=== PATIENT | female | born 1980 | race American Indian/Alaskan Native ===

== ENCOUNTER 2021-06-18 16:32 | Emergency (ER) | payer OTHER | END 2021-06-18 19:05 | disposition home or self-care (01) | LOC: JD.ED 16:32 | DX: F10.129 Alcohol abuse with intoxication, unspecified (principal); Y90.5 Blood alcohol level of 100-119 mg/100 ml | CPT/HCPCS: 36415; 80307; 99284 ==

== ENCOUNTER 2023-08-19 06:51 | Emergency (ER) | payer SELFPAY ==
[2023-08-19 08:09] LABS: BASOPHILS PERCENT AUTO 0.6 % (0.0-1.0); EOSINOPHILS ABSOLUTE AUTO 0.1 K/mm3 (0.0-0.4); EOSINOPHILS PERCENT AUTO 0.8 % (0.0-6.0); HEMOGLOBIN 8.8 gm/dl (12.0-16.0); IMMATURE GRAN ABSOLUTE AUTO 0.02 K/mm3 (0.00-0.05); IMMATURE GRAN PERCENT AUTO 0.3 % (0.0-0.4); LYMPHOCYTES ABSOLUTE AUTO 3.1 K/mm3 (1.0-4.8); LYMPHOCYTES PERCENT AUTO 48.4 % (24.0-44.0); MEAN CORPUSCULAR HEMOGLOBIN 19.6 pg (28.0-32.0); MEAN CORPUSCULAR HGB CONC 28.4 g/dl (32.0-36.0); MEAN CORPUSCULAR VOLUME 68.9 fl (83.0-99.0); MEAN PLATELET VOLUME 9.5 fl (9.4-12.3); MONOCYTES ABSOLUTE AUTO 0.4 K/mm3 (0.0-0.8); MONOCYTES PERCENT AUTO 6.1 % (0.0-8.0); NEUTROPHILS ABSOLUTE AUTO 2.8 K/mm3 (1.8-7.7); NEUTROPHILS PERCENT AUTO 43.8 % (41.0-71.0); PLATELET COUNT,PLT 380 K/mm3 (150-400); WHITE BLOOD CELL COUNT,WBC 6.41 K/mm3 (3.9-11.3)
[2023-08-19] MEDS ORDERED: Naloxone 0.4 MG/ML SDV IVPUSH PRN (08:10)
[2023-08-19] MEDS: Ondansetron 4 MG/2 ML SDV IVPUSH ONE (08:25)
[2023-08-19] MEDS: Morphine 4 MG/ML Syringe IVPUSH ONE (08:26)
[2023-08-19 08:32] LABS: SLIDE REVIEW ABNORMAL SMEAR
[2023-08-19] MEDS ORDERED: Metoclopramide 10 MG/2 ML SDV ONE (08:36)
[2023-08-19 08:43] LABS: A/G RATIO 0.7 (1-2); ALBUMIN 3.6 g/dl (3.4-5.0); ANION GAP 14.1 (5-15); BILIRUBIN TOTAL 0.3 mg/dL (0.2-1.0); BUN/CREATININE RATIO 14.4 (14-18); CALCIUM 8.7 mg/dL (8.5-10.1); CREATININE 0.9 mg/dL (0.55-1.02); EST CRCL DRUG DOSING (CG) 79.99 mL/min; ETHANOL BLOOD MEDICAL 0.22 gm% (0.00); POTASSIUM,K 4.1 mEq/L (3.5-5.1); PROTEIN TOTAL,TP 8.5 g/dl (6.4-8.2)
[2023-08-19] MEDS ORDERED: Ketamine 500 mg/10 ML MDV ONE (08:46)
[2023-08-19] MEDS: Sodium Chloride 0.9% 1,000 ML IV ONE (08:48)
[2023-08-19] MEDS ORDERED: Glycopyrrolate 0.2 MG/ML SDV ONE (08:49)
[2023-08-19] MEDS ORDERED: Midazolam 1 MG/ML 2 ML SDV ONE (08:56)
[2023-08-19] MEDS: Acetaminophen/oxyCODONE 325-5 MG Tab PO ONE (11:58)
== END 2023-08-19 11:44 | disposition home or self-care (01) ==
LOC: JD.ED 06:51
DX: S53.125A Posterior dislocation of left ulnohumeral joint, initial encounter (principal); W18.30XA Fall on same level, unspecified, initial encounter; Y93.89 Activity, other specified
CPT/HCPCS: 24600; 36415; 73070; 73080; 73200; 76377; 80053; 80307; 85025; 96374; 96375; 99284; A9270; J2250; J2270; J2405; J2765; J3490; J7030